=== PATIENT | male | born 1980 | race Caucasian/White ===

== ENCOUNTER 2018-11-07 17:51 | Emergency (ER) | payer SELFPAY ==
--- NOTE | 2018-11-07 18:33 | ED Physician Chart ---
ED Chief Complaint/HPI - Patient Information Date Seen:: 11/07/18 Time Seen:: 18:28 Chief Complaint:: Dizziness and chest pressure History of Present Illness:: 38 yo male with history of psoriasis, had cough and fever for a few days. Pt had dizziness this morning. Pt then had chest pressure and SOB this afternoon which prompted pt to come to ER. Allergies:: Allergies Allergy/AdvReac Type Severity Reaction Status Date / Time No Known Allergies Allergy Verified 11/07/18 18:21 Vitals:: Vital Signs - 8 hr 11/07/18 18:21 Temp 97.3 F HR 75 RR 16 BP 151/111 O2 Sat % 98 ED Review of Systems - Review of Systems General/Constitutional: Fever Skin: No rash Head: Headache Eyes: No pain ENT: Sore throat Neck: Neck pain Cardio Vascular: other (chest pressure) Pulmonary: SOB GI: Nausea, No vomiting Musculoskeletal: Muscle pain Neurological: No focal symptoms ED Past Medical History - Past Medical History Past Medical History: HTN, Other (psoriasis) Family History: HTN Social History: Non Smoker, Alcohol, No Drug Use Surgical History: Hernia (Left inguinal hernia repair) Family Medical History - Family Member Mother History Unknown: Yes ED Physical Exam - Physical Examination General/Constitutional: Awake, Alert Head: Atraumatic Eyes: PERRL, EOMI Other Skin comments:: Psoriasis ENMT: Nasal exam nl Neck: No nuchal rigidity Respiratory: No Wheeze/Rhonchi/Rales Cardio Vascular: RRR, No murmur, gallop, rubs, NL S1 S2 GI: No tenderness/rebounding/guarding Extremities: normal strength in all extremities Neuro/Psych: No focal deficits ED Labs/Radiology/EKG Results - Lab Results Results: Laboratory Last Values WBC 4.5 Th/cmm (4.8-10.8) L 11/07/18 19:00 RBC 5.62 Mil/cmm (4.30-5.70) 11/07/18 19:00 Hgb 16.2 gm/dL (12-16) 11/07/18 19:00 Hct 48.2 % (41.0-60) 11/07/18 19:00 MCV 85.8 fl (80-99) 11/07/18 19:00 MCH 28.9 pg (26.0-30.0) 11/07/18 19:00 MCHC Differential 33.7 pg (28.0-36.0) 11/07/18 19:00 RDW 13.5 % (11.5-20.0) 11/07/18 19:00 Plt Count 273 Th/cmm (150-400) 11/07/18 19:00 MPV 8.2 fl 11/07/18 19:00 Neutrophils % 47.0 % (40.0-80.0) 11/07/18 19:00 Lymphocytes % 33.3 % (20.0-50.0) 11/07/18 19:00 Monocytes % 12.6 % (2.0-10.0) H 11/07/18 19:00 Eosinophils % 5.6 % (0.0-5.0) H 11/07/18 19:00 Basophils % 1.5 % (0.0-2.0) 11/07/18 19:00 - Radiology Results Results: CXR: no focal consolidation - EKG Interpretations EKG Time:: 18:46 Rate & Rhythm: 65 bpm, sinus rhythm Comments:: Left ventricular hypertrophy ED Assessment - Assessment General Assessment: Upper respiratory infection Bronchitis Chest pain Assessment/Comments:: CBC, CMP, Trop, CPK, BNP EKG, CXR [facility] ED Septic Shock - . Is Septic Shock (SBP<90, OR Lactate>4 mmol\L) present?: No - <6hrs of presentation: Vital Signs: Vital Signs - 8 hr 11/07/18 18:21 Temp 97.3 F HR 75 RR 16 BP 151/111 O2 Sat % 98 ED Reassessment (Disposition) - Reassessment Reassessment Condition:: Improved - Aftercare/Follow up Instructions Notes:: F/u PCP if chest pain/tightness recurs. - Patient Disposition Discharge/Transfer:: Home
[2018-11-07] MEDS ORDERED: Albuterol/Ipratropium Neb 3 ML AERS HHN ONE ×2 (19:11→19:21)
[2018-11-07] MEDS ORDERED: Dexamethasone Sodium Phos 4 mg/mL Vial IVP STA (19:11)
[2018-11-07 19:29] LABS: % BASOPHILS 1.5 % (0.0-2.0); % EOSINOPHILS 5.6 % (0.0-5.0); % LYMPHOCYTES 33.3 % (20.0-50.0); % MONOCYTES 12.6 % (2.0-10.0); BASOPHILE ABSOLUTE 0.1 Th/cumm (0-0.2); EOSINOPHILE ABSOLUTE 0.3 Th/cmm (0.1-0.4); HEMATOCRIT 48.2 % (41.0-60); HEMOGLOBIN 16.2 gm/dL (12-16); LYMPHOCYTE ABSOLUTE 1.5 Th/cmm (1.5-3.0); MEAN CELL VOLUME 85.8 fl (80-99); MEAN CORPUSCULAR HEMOGLOBIN 28.9 pg (26.0-30.0); MEAN CORPUSCULAR HGB CONC 33.7 pg (28.0-36.0); MEAN PLATELET VOLUME 8.2 fl; MONOCYTE ABSOLUTE 0.6 Th/cmm (0.3-1.0); PLATELET COUNT 273 Th/cmm (150-400); RED BLOOD COUNT 5.62 Mil/cmm (4.30-5.70); RED CELL DISTRIBUTION WIDTH 13.5 % (11.5-20.0); WHITE BLOOD COUNT 4.5 Th/cmm (4.8-10.8)
[2018-11-07] MEDS ORDERED: Dexamethasone Sodium Phos 10 mg/mL PF Vial ONE (19:29)
[2018-11-07] MEDS ORDERED: Dexamethasone Sodium Phos 4 mg/mL Vial INH STA (19:34)
[2018-11-07 19:48] LABS: ALB/GLOB RATIO 1.6 (1.0-1.8); ALBUMIN 4.4 gm/dL (4.2-5.5); ALKALINE PHOSPHATASE 83 U/L (34-104); ANION GAP 11.7 (7.0-16.0); BILIRUBIN,TOTAL 0.3 mg/dL (0.3-1.0); BUN - UREA NITROGEN 10 mg/dL (7-25); CALCIUM SERUM 9.3 mg/dL (8.6-10.3); CARBON DIOXIDE 27.2 mEq/L (21.0-31.0); CHLORIDE 104 mEq/L (98-107); CREATININE KINASE 43 U/L (30-223); GFR AFRICAN-AMERICAN > 60.0 ml/min (>90); GFR NON AFRICAN-AMERICAN > 60.0 ml/min; GLUCOSE 91 mg/dL (70-105); POTASSIUM SERUM 3.9 mEq/L (3.5-5.1); SGOT 16 U/L (13-39); SGPT/ALT 35 U/L (7-52); SODIUM SERUM 139 mEq/L (136-145); TOTAL PROTEIN,SERUM 7.1 gm/dL (6.0-8.3)
[2018-11-07 20:26] LABS: INF A SCREEN NEG FOR INF A; INF B SCREEN NEG FOR INF B
[2018-11-07 20:39] LABS: URINE SOURCE MIDSTREAM
[2018-11-07 20:42] LABS: URINE BILIRUBIN NEGATIVE (NEGATIVE); URINE BLOOD NEGATIVE (NEGATIVE); URINE GLUCOSE (UA) NEGATIVE (NEGATIVE); URINE KETONE 15 mg/dL (NEGATIVE); URINE LEUKOCYTE ESTERASE NEGATIVE (NEGATIVE); URINE NITRATE NEGATIVE (NEGATIVE); URINE PH 5.5 (4.6 - 8.0); URINE PROTEIN 30 mg/dL (NEGATIVE); URINE UROBILINOGEN 0.2 E.U./dL (0.2 - 1.0)
[2018-11-07 20:44] LABS: URINE CLARITY CLEAR (CLEAR); URINE COLOR YELLOW; URINE MICROSCOPIC INDICATED? YES
[2018-11-07 20:45] LABS: URINE RBC 0-2 /hpf (0-5)
[2018-11-07 20:46] LABS: URINE BACTERIA 1+ /hpf (NONE SEEN); URINE EPITHELIAL CELLS FEW /lpf (FEW)
--- NOTE | 2018-11-08 08:44 | Diagnostic Imaging Report ---
Portable chest x-ray Time: 1842 History: SOB Allowing for portable technique the heart size is normal. No focal pulmonary parenchymal processes. No hilar or mediastinal abnormalities. Impression: No acute abnormalities.
== END 2018-11-07 22:01 | disposition home or self-care (01) ==
LOC: ER 17:51
DX: J40 Bronchitis, not specified as acute or chronic (principal); J06.9 Acute upper respiratory infection, unspecified; R07.89 Other chest pain; I10 Essential (primary) hypertension; Z98.890 Other specified postprocedural states
CPT/HCPCS: 36415-UA; 71045-TC; 80053-TC; 81001-TC; 82550-TC; 83880-TC; 84443-TC; 84484-TC; 85025-TC; 87804-TC; 93005; 94640; 96374